=== PATIENT | male | born 1995 | race Caucasian/White ===

== ENCOUNTER 2016-08-04 21:16 | Emergency (ER) | payer OTHER ==
[~2016-08-04] VITALS: Ht 182.9 cm; Wt 119.0 kg
[~2016-08-04 21:16] MED LIST: FLOMAX0.4 MG PO; NOHOMEMEDS; NORCO 5/3251 TABLET PO; ZYRTEC10 M3 PO
[2016-08-04 21:42] LABS: HEMATOCRIT 43.7 % (38.0-50.0); MCH 28.3 PG (29.0-34.0); MCHC 33.4 G/DL (30.0-36.0); MCV 84.7 FL (86-99); MEAN PLAT.VOLUME 10.2 uM^3 (9.0-12.4); PLATELET COUNT 220 K/uL (156-360); RBC DIS.WIDTH-CV 13.2 % (11.8-14.6); RBC DIS.WIDTH-SD 40.3 % (39-53); RED BLOOD COUNT 5.16 M/uL (4.00-5.50); WHITE BLOOD COUNT 9.1 K/uL (4.1-10.2)
[2016-08-04 21:59] LABS: CHLORIDE 109 mEq/L (99-109); POTASSIUM 4.1 mEq/L (3.7-5.4); SODIUM 142 mEq/L (136-147)
[2016-08-04 22:01] LABS: GLUCOSE 88 mg/dL (70-99)
[2016-08-04 22:02] LABS: ANION GAP 9 MEQ/L (2-14)
[2016-08-04 22:05] LABS: GFR ESTIMATE (CALCULATED) > 59 mL/min/; UREA NITROGEN (BUN) 14 mg/dL (9-23)
[2016-08-04 23:31] LABS: ADD MIUA? YES
[2016-08-04 23:33] LABS: UCUL ADDED? YES
[2016-08-04] MEDS ORDERED: ESCITALOPRAM OX20 MG PO (23:39)
[2016-08-04] MEDS ORDERED: ADDERALL XR 1010 MG PO (23:39)
[2016-08-04 23:52] LABS: COLOR RED ((YELLOW))
[2016-08-04 23:53] LABS: BILIRUBIN NEGATIVE; BLOOD LARGE; GLUCOSE (STRIP) NEGATIVE; KETONES NEGATIVE; LEUKOCYTES NEGATIVE; NITRITE NEGATIVE; PH, URINE 6.5 (5-8); PROTEIN (STRIP) TRACE; UROBILINOGEN 0.2 MG/DL (0.2-1.0)
[2016-08-04 23:54] LABS: RED BLOOD CELLS TNTC /HPF (0-5)
[2016-08-05] MEDS ORDERED: FLOMAX0.4 MG PO (00:52)
[2016-08-05] MEDS ORDERED: ZOFRAN ODT4 MG PO (00:52)
[2016-08-05] MEDS ORDERED: NORCO 5/3251 TABLET PO (00:52)
[2016-08-05 01:11] VITALS: BP 113/67
== END 2016-08-05 01:12 | disposition home or self-care (01) ==
LOC: EME 21:16 → RME 21:16
DX: N20.2 Calculus of kidney with calculus of ureter (principal); R31.9 Hematuria, unspecified
CPT/HCPCS: 74176; 80048; 81003; 85027; 87086; 99281; 99284; J1885; J7030

== ENCOUNTER → 2016-09-21 | Outpatient (CLI) | payer OTHER ==
[~2016-09-21] VITALS: Ht 182.9 cm; Wt 122.0 kg
[~2016-09-21] MED LIST changes: +ADDERALL XR 1010 MG PO; +ADDERALL10 MG PO; +ESCITALOPRAM OX20 MG PO; +LEXAPRO20 MG PO; +ZOFRAN ODT4 MG PO
== END | disposition home or self-care (01) ==
LOC: AMB 07:23
DX: N20.0 Calculus of kidney (principal); Z87.442 Personal history of urinary calculi; F17.210 Nicotine dependence, cigarettes, uncomplicated; Z68.35 Body mass index [BMI] 35.0-35.9, adult; Z84.1 Family history of disorders of kidney and ureter; Z80.3 Family history of malignant neoplasm of breast; Z82.0 Family history of epilepsy and other diseases of the nervous system; Z82.49 Family history of ischemic heart disease and other diseases of the circulatory system
CPT/HCPCS: 74010; J2250; J3010

== ENCOUNTER 2017-05-18 07:34 | Emergency (ER) | payer OTHER ==
[~2017-05-18] VITALS: Ht 182.9 cm; Wt 123.6 kg
[2017-05-18 08:52] LABS: BASOPHIL COUNT 0.1 K/uL (0-0.1); EOSINOPHIL (%) 5.6 % (0-5); EOSINOPHIL COUNT 0.4 K/uL (0-0.3); HEMATOCRIT 44.1 % (38.0-50.0); IMMATURE GRANULOCYTE (%) 0.5 % (0.0-0.7); INSTRUMENT ABS NEUTROPHIL CT 4.1 K/uL; LYMPHOCYTE COUNT 2.6 K/uL (1.0-2.8); MCH 28.6 PG (29.0-34.0); MCHC 33.1 G/DL (30.0-36.0); MCV 86.5 FL (86-99); MEAN PLAT.VOLUME 10.3 uM^3 (9.0-12.4); MONOCYTE (%) 8.9 % (3-12); MONOCYTE COUNT 0.7 K/uL (0-0.8); NEUTROPHIL (%) 51.7 % (45-76); NEUTROPHIL COUNT 4.1 K/uL (1.8-6.4); PLATELET COUNT 254 K/uL (156-360); RBC DIS.WIDTH-SD 40.7 % (39-53); WHITE BLOOD COUNT 7.8 K/uL (4.1-10.2)
[2017-05-18 09:02] LABS: CHLORIDE 106 mEq/L (99-109); POTASSIUM 4.3 mEq/L (3.7-5.4); SODIUM 141 mEq/L (136-147)
[2017-05-18 09:04] LABS: GLUCOSE 89 mg/dL (70-99)
[2017-05-18 09:06] LABS: ANION GAP 10 MEQ/L (2-14)
[2017-05-18 09:07] LABS: SERUM ETHYL ALCOHOL < 10 mg/dL
[2017-05-18 09:08] LABS: GFR ESTIMATE (CALCULATED) > 59 mL/min/ (58.99-99999)
[2017-05-18 09:09] LABS: UREA NITROGEN (BUN) 12 mg/dL (9-23)
[2017-05-18 09:43] VITALS: BP 130/72
== END 2017-05-18 09:43 | disposition home or self-care (01) ==
LOC: EME 07:34
PROVIDERS: Emergency Medicine
DX: F32.9 Major depressive disorder, single episode, unspecified (principal); F41.9 Anxiety disorder, unspecified; F17.200 Nicotine dependence, unspecified, uncomplicated
CPT/HCPCS: 80048; 81003; 85025; 90839; 99281; 99285; G0480